=== PATIENT | female | born 1945 | race Caucasian/White ===

== ENCOUNTER 2018-11-09 16:59 | Emergency (ER) | payer MEDICARE ==
[~2018-11-09] VITALS: Ht 154.9 cm; Wt 63.5 kg
[2018-11-09 18:21] VITALS: BP 138/86
[2018-11-09] MEDS ORDERED: BACLOFEN 10 MG TAB PO ONE (19:00)
[2018-11-09] MEDS ORDERED: HYDROcodone-ACET 7.5/325MG TAB PO ONE (19:00)
== END 2018-11-09 19:30 | disposition home or self-care (01) ==
LOC: ER 16:59
DX: S29.011A Strain of muscle and tendon of front wall of thorax, initial encounter (principal); M62.838 Other muscle spasm; V43.52XA Car driver injured in collision with other type car in traffic accident, initial encounter; Y93.89 Activity, other specified; Y99.8 Other external cause status; Y92.410 Unspecified street and highway as the place of occurrence of the external cause
CPT/HCPCS: 71101

== ENCOUNTER 2020-11-26 09:51 | Emergency (ER) | payer BC ==
[~2020-11-26] VITALS: Ht 160 cm; Wt 65.8 kg
[2020-11-26 09:56] VITALS: BP 146/75
[2020-11-26] MEDS ORDERED: ACETAMINOPHEN 500 MG TAB PO ONE (11:00)
== END 2020-11-26 14:52 | disposition home or self-care (01) ==
LOC: EDBD 09:51 → ER 09:51
DX: S83.91XA Sprain of unspecified site of right knee, initial encounter (principal); M17.11 Unilateral primary osteoarthritis, right knee; M25.461 Effusion, right knee; F03.90 Unspecified dementia, unspecified severity, without behavioral disturbance, psychotic disturbance, mood disturbance, and anxiety; W01.0XXA Fall on same level from slipping, tripping and stumbling without subsequent striking against object, initial encounter; Y93.89 Activity, other specified; Y92.89 Other specified places as the place of occurrence of the external cause; Y99.8 Other external cause status
CPT/HCPCS: 73560

== ENCOUNTER 2021-05-29 10:25 | Inpatient (IN) | payer BC ==
[~2021-05-29] VITALS: Ht 172.7 cm; Wt 65.0 kg
[2021-05-29] MEDS ORDERED: LIDOCAINE 1% (LOCAL ANESTH.) PF 5ml SDV ID ONE (10:45)
[2021-05-29 11:10] LABS: Basophils # (auto) 0 10 ^3/uL (0-0.2); Basophils % (auto) 0.1 % (0.0-2.0); Eosinophils # (auto) 0 10 ^3/uL (0-0.8); Lymphocytes # (auto) 0.9 10 ^3/uL (0.4-5.4); Lymphocytes % (auto) 3.3 % (10.0-50.0); Mean Corpuscular Hgb Conc. 35.2 g/dL (32.0-36.0); Monocytes # (auto) 1.8 10 ^3/uL (0-1.3); Monocytes % (auto) 6.8 % (0.0-12.0); Neutrophils # (auto) 24.2 10 ^3/uL (1.6-8.6); Neutrophils % (auto) 89.8 % (37.0-80.0); Red Cell Distribution Width 13.8 % (11.8-14.3); White Blood Cell 26.9 10^3/uL (4.4-10.8)
[2021-05-29 11:26] LABS: Anion Gap 8 (5-15); Blood Urea Nitrogen 16 mg/dL (7-18); Calcium 8.8 mg/dL (8.5-10.1); Carbon Dioxide 25 mmol/L (21-32); Chloride 101 mmol/L (98-107); Glucose 116 mg/dL (74-106); Potassium 3.3 mmol/L (3.5-5.1); Sodium 134 mmol/L (136-145)
[2021-05-29 11:37] LABS: Alanine Aminotransferase 20 U/L (13-56); Alkaline Phosphatase 110 U/L (45-117); Aspartate Aminotransferase 14 U/L (15-37); BUN/Creatinine Ratio 19.5; Bilirubin, Total 0.6 mg/dL (0.2-1.0); GFR African American 88 mL/min; GFR Non-African American 72 mL/min; Total Protein 8.1 g/dL (6.4-8.2)
[2021-05-29] MEDS ORDERED: POTASSIUM CHL 20MEQ/100ML 100 ML IV ONE (14:15)
[2021-05-29 17:02] LABS: Urine Bacteria MANY /hpf (None Seen); Urine Blood 1+ /uL (Negative); Urine Hyaline Cast FEW /lpf (0 - 2); Urine Mucus FEW (None Seen); Urine WBC 236 /hpf (0 - 5); Urine WBC Clumps PRESENT /hpf (None Seen)
[2021-05-29] MEDS ORDERED: DOCUSATE SOD 100 MG CAP PO PRN (18:30)
[2021-05-29] MEDS ORDERED: cefTRIAXone 1GM/50ML D5W 50 ML IV ONE (18:30)
[2021-05-29] MEDS ORDERED: ACETAMINOPHEN 325 MG TAB PO PRN (18:30)
[2021-05-29] MEDS ORDERED: NITROGLYCERIN 0.4 MG SL TAB SL PRN (18:30)
[2021-05-29] MEDS ORDERED: ONDANSETRON HCL 4 MG/2 ML VIAL IV PRN (18:30)
[2021-05-29] MEDS ORDERED: QUET50TA25 PO (21:12)
[2021-05-29] MEDS ORDERED: OMEP-434 PO (21:12)
[2021-05-29] MEDS ORDERED: DONE5TAB80 PO (21:12)
[2021-05-29] MEDS ORDERED: SIMV-8 PO (21:12)
[2021-05-29 22:00] VITALS: BP 150/90
[2021-05-29] MEDS: SODIUM CHLOR 0.9% PF (SALINE LOCK) 10ML VIAL/SYR IV SCH (22:00)
[2021-05-29] MEDS: FAMOTIDINE 20 MG TAB PO SCH (22:00)
[2021-05-29] MEDS: ATORVASTATIN 20 MG TAB PO SCH (22:51)
[2021-05-29] MEDS: DONEPEZIL HYDROCHLORIDE 5 MG TAB PO SCH (22:51)
[2021-05-29] MEDS: ASCORBIC ACID 500 MG TAB PO SCH (22:52)
[2021-05-29] MEDS: HYDROcodone-ACET 5/325MG TAB PO PRN (22:52)
[2021-05-29 23:08] VITALS: BP 150/90
[2021-05-30 05:00] VITALS: BP 123/72
[2021-05-30] MEDS: SODIUM CHLOR 0.9% PF (SALINE LOCK) 10ML VIAL/SYR IV SCH (06:55)
[2021-05-30 06:56] LABS: Eosinophils # (auto) 0 10 ^3/uL (0-0.8); Lymphocytes # (auto) 1.1 10 ^3/uL (0.4-5.4); Mean Corpuscular Hemoglobin 30.6 pg (28.0-32.0); Monocytes # (auto) 1.8 10 ^3/uL (0-1.3)
[2021-05-30 06:58] LABS: Basophils # (auto) 0.1 10 ^3/uL (0-0.2); Basophils % (auto) 0.3 % (0.0-2.0); Eosinophils % (auto) 0.1 % (0.0-7.0); Hematocrit 36.4 % (36.0-46.0); Hemoglobin 12.5 g/dL (12.2-16.2); Mean Corpuscular Hgb Conc. 34.5 g/dL (32.0-36.0); Mean Corpuscular Volume 88.7 fL (80.0-100.0); Monocytes % (auto) 8.4 % (0.0-12.0); Neutrophils % (auto) 86.2 % (37.0-80.0); Red Cell Distribution Width 13.3 % (11.8-14.3)
[2021-05-30 07:12] LABS: Potassium 3.5 mmol/L (3.5-5.1)
[2021-05-30 07:22] LABS: Albumin 2.6 g/dL (3.4-5.0); BUN/Creatinine Ratio 24.4; Bilirubin, Total 0.4 mg/dL (0.2-1.0); Calcium 8.7 mg/dL (8.5-10.1); Total Protein 7.6 g/dL (6.4-8.2)
[2021-05-30] MEDS: cefTRIAXone 1GM/50ML D5W 50 ML IV SCH (08:58)
[2021-05-30] MEDS: HYDROcodone-ACET 5/325MG TAB PO PRN ×2 (08:58→22:15)
[2021-05-30 09:00] VITALS: BP 140/78
[2021-05-30] MEDS: MULTIPLE VITAMIN TAB PO SCH (09:38)
[2021-05-30] MEDS: PANTOPRAZOLE 40 MG TAB PO SCH (09:38)
[2021-05-30] MEDS: ENOXAPARIN SOD 30 MG/0.3 ML SYRINGE SC SCH (09:38)
[2021-05-30] MEDS: FAMOTIDINE 20 MG TAB PO SCH (09:38)
[2021-05-30] MEDS: ASCORBIC ACID 500 MG TAB PO SCH (09:38)
[2021-05-30] MEDS ORDERED: ZINC SULFATE 220mg CAP or TAB PO SCH (10:00)
[2021-05-30] MEDS: QUEtiapine FUMARATE 25 MG TAB PO SCH ×2 (12:07→22:14)
[2021-05-30 13:00] VITALS: BP 131/69
[2021-05-30 16:24] VITALS: BP 107/74
[2021-05-30 22:00] VITALS: BP 112/54
[2021-05-30] MEDS: DONEPEZIL HYDROCHLORIDE 5 MG TAB PO SCH (22:14)
[2021-05-30] MEDS: ATORVASTATIN 20 MG TAB PO SCH (22:14)
[2021-05-31 05:00] VITALS: BP 122/72
[2021-05-31 07:10] LABS: Basophils # (auto) 0.1 10 ^3/uL (0-0.2); Basophils % (auto) 0.3 % (0.0-2.0); Eosinophils # (auto) 0 10 ^3/uL (0-0.8); Eosinophils % (auto) 0.1 % (0.0-7.0); Hematocrit 34.4 % (36.0-46.0); Hemoglobin 11.9 g/dL (12.2-16.2); Lymphocytes # (auto) 1.3 10 ^3/uL (0.4-5.4); Lymphocytes % (auto) 8.3 % (10.0-50.0); Mean Corpuscular Hgb Conc. 34.6 g/dL (32.0-36.0); Mean Corpuscular Volume 89.7 fL (80.0-100.0); Monocytes # (auto) 1.5 10 ^3/uL (0-1.3); Monocytes % (auto) 10.1 % (0.0-12.0); Neutrophils # (auto) 12.3 10 ^3/uL (1.6-8.6); Neutrophils % (auto) 81.2 % (37.0-80.0); Red Blood Cells 3.84 10^6/uL (4.0-5.20); Red Cell Distribution Width 13.6 % (11.8-14.3); White Blood Cell 15.2 10^3/uL (4.4-10.8)
[2021-05-31 07:17] LABS: Calcium 8.8 mg/dL (8.5-10.1); Potassium 3.6 mmol/L (3.5-5.1)
[2021-05-31 07:19] LABS: BUN/Creatinine Ratio 30.3
[2021-05-31] MEDS: cefTRIAXone 1GM/50ML D5W 50 ML IV SCH (08:41)
[2021-05-31 08:49] VITALS: BP 133/78
[2021-05-31] MEDS: PANTOPRAZOLE 40 MG TAB PO SCH (09:36)
[2021-05-31] MEDS: MULTIPLE VITAMIN TAB PO SCH (09:36)
[2021-05-31] MEDS: ENOXAPARIN SOD 30 MG/0.3 ML SYRINGE SC SCH (09:36)
[2021-05-31] MEDS: QUEtiapine FUMARATE 25 MG TAB PO SCH ×2 (09:36→22:10)
[2021-05-31] MEDS ORDERED: LEVO500T31 PO (12:29)
[2021-05-31 13:00] VITALS: BP 100/63
[2021-05-31 17:00] VITALS: BP 127/55
[2021-05-31] MEDS: ATORVASTATIN 20 MG TAB PO SCH (22:10)
[2021-05-31] MEDS: DONEPEZIL HYDROCHLORIDE 5 MG TAB PO SCH (22:10)
[2021-05-31] MEDS: HYDROcodone-ACET 5/325MG TAB PO PRN (23:03)
[2021-06-01 05:29] LABS: Basophils # (auto) 0.1 10 ^3/uL (0-0.2); Basophils % (auto) 0.4 % (0.0-2.0); Eosinophils # (auto) 0 10 ^3/uL (0-0.8); Eosinophils % (auto) 0.1 % (0.0-7.0); Hematocrit 34.7 % (36.0-46.0); Hemoglobin 12.3 g/dL (12.2-16.2); Lymphocytes # (auto) 1.9 10 ^3/uL (0.4-5.4); Lymphocytes % (auto) 9.3 % (10.0-50.0); Mean Corpuscular Hemoglobin 31.6 pg (28.0-32.0); Mean Corpuscular Hgb Conc. 35.4 g/dL (32.0-36.0); Mean Corpuscular Volume 89.2 fL (80.0-100.0); Monocytes # (auto) 1.8 10 ^3/uL (0-1.3); Monocytes % (auto) 8.6 % (0.0-12.0); Neutrophils # (auto) 16.7 10 ^3/uL (1.6-8.6); Neutrophils % (auto) 81.6 % (37.0-80.0); Red Cell Distribution Width 13.2 % (11.8-14.3); White Blood Cell 20.5 10^3/uL (4.4-10.8)
[2021-06-01 05:44] LABS: Potassium 3.6 mmol/L (3.5-5.1)
[2021-06-01 05:54] LABS: Calcium 8.9 mg/dL (8.5-10.1)
[2021-06-01 09:00] VITALS: BP 134/77
[2021-06-01] MEDS: QUEtiapine FUMARATE 25 MG TAB PO SCH ×2 (10:29→21:56)
[2021-06-01] MEDS: PANTOPRAZOLE 40 MG TAB PO SCH (10:29)
[2021-06-01] MEDS: cefTRIAXone 1GM/50ML D5W 50 ML IV SCH (10:29)
[2021-06-01] MEDS: MULTIPLE VITAMIN TAB PO SCH (10:29)
[2021-06-01] MEDS: HYDROcodone-ACET 5/325MG TAB PO PRN ×2 (10:29→22:02)
[2021-06-01] MEDS: ENOXAPARIN SOD 30 MG/0.3 ML SYRINGE SC SCH (10:30)
[2021-06-01 13:00] VITALS: BP 101/67
[2021-06-01] MEDS: CLINDAMYCIN 600MG IV 50 ML IV SCH ×2 (14:36→21:53)
[2021-06-01 15:14] LABS: Urine Bacteria NONE SEEN /hpf (None Seen); Urine Blood 1+ /uL (Negative); Urine Mucus FEW (None Seen); Urine Specific Gravity 1.033 (1.001-1.035); Urine WBC 3 /hpf (0 - 5)
[2021-06-01] MEDS: levoFLOXacin 500MG 100 ML IV SCH (15:53)
[2021-06-01 16:30] VITALS: BP 116/71
[2021-06-01] MEDS: DONEPEZIL HYDROCHLORIDE 5 MG TAB PO SCH (21:55)
[2021-06-01] MEDS: ATORVASTATIN 20 MG TAB PO SCH (21:56)
[2021-06-01 22:00] VITALS: BP_SYST 134; BP_SYST 153; BP_DIAS 73; BP_DIAS 77
[2021-06-02 05:00] VITALS: BP_SYST 123; BP_SYST 124; BP_DIAS 70; BP_DIAS 73
[2021-06-02 05:23] LABS: Basophils # (auto) 0.1 10 ^3/uL (0-0.2); Basophils % (auto) 0.4 % (0.0-2.0); Eosinophils # (auto) 0.2 10 ^3/uL (0-0.8); Hematocrit 35.8 % (36.0-46.0); Hemoglobin 12.2 g/dL (12.2-16.2); Lymphocytes # (auto) 1.6 10 ^3/uL (0.4-5.4); Lymphocytes % (auto) 10.5 % (10.0-50.0); Mean Corpuscular Hemoglobin 30.4 pg (28.0-32.0); Mean Corpuscular Hgb Conc. 33.9 g/dL (32.0-36.0); Mean Corpuscular Volume 89.7 fL (80.0-100.0); Monocytes # (auto) 1.4 10 ^3/uL (0-1.3); Monocytes % (auto) 9.2 % (0.0-12.0); Neutrophils # (auto) 12.3 10 ^3/uL (1.6-8.6); Neutrophils % (auto) 78.9 % (37.0-80.0); Nucleated Red Blood Cells % 0.1 %; Red Blood Cells 3.99 10^6/uL (4.0-5.20); Red Cell Distribution Width 13.8 % (11.8-14.3); White Blood Cell 15.5 10^3/uL (4.4-10.8)
[2021-06-02 05:49] LABS: BUN/Creatinine Ratio 31.7; Calcium 8.8 mg/dL (8.5-10.1)
[2021-06-02] MEDS: CLINDAMYCIN 600MG IV 50 ML IV SCH ×3 (05:59→21:29)
[2021-06-02 09:00] VITALS: BP 122/76
[2021-06-02] MEDS: levoFLOXacin 500MG 100 ML IV SCH (10:02)
[2021-06-02] MEDS: MULTIPLE VITAMIN TAB PO SCH (10:02)
[2021-06-02] MEDS: QUEtiapine FUMARATE 25 MG TAB PO SCH ×2 (10:02→21:29)
[2021-06-02] MEDS: PANTOPRAZOLE 40 MG TAB PO SCH (10:02)
[2021-06-02] MEDS: ENOXAPARIN SOD 30 MG/0.3 ML SYRINGE SC SCH (10:03)
[2021-06-02 13:00] VITALS: BP 112/64
[2021-06-02 17:00] VITALS: BP 155/82
[2021-06-02] MEDS ORDERED: LEVO500T31 PO (18:33)
[2021-06-02] MEDS ORDERED: CLIN300C8 PO (18:33)
[2021-06-02] MEDS: ATORVASTATIN 20 MG TAB PO SCH (21:29)
[2021-06-02] MEDS: DONEPEZIL HYDROCHLORIDE 5 MG TAB PO SCH (21:29)
[2021-06-02 22:00] VITALS: BP 153/77
[2021-06-03 05:00] VITALS: BP 124/70
[2021-06-03] MEDS: CLINDAMYCIN 600MG IV 50 ML IV SCH ×2 (05:43→14:15)
[2021-06-03] MEDS: HYDROcodone-ACET 5/325MG TAB PO PRN (05:43)
[2021-06-03 08:00] VITALS: BP 155/79
[2021-06-03] MEDS: levoFLOXacin 500MG 100 ML IV SCH (09:38)
[2021-06-03] MEDS: PANTOPRAZOLE 40 MG TAB PO SCH (09:38)
[2021-06-03] MEDS: MULTIPLE VITAMIN TAB PO SCH (09:38)
[2021-06-03] MEDS: ENOXAPARIN SOD 30 MG/0.3 ML SYRINGE SC SCH (09:39)
[2021-06-03] MEDS: QUEtiapine FUMARATE 25 MG TAB PO SCH (09:48)
[2021-06-03 12:00] VITALS: BP 115/71
[2021-06-03 16:00] VITALS: BP 129/66
[2021-06-03 17:34] VITALS: BP 129/66
== END 2021-06-03 19:58 | disposition home health service (06) | DRG 872 ==
LOC: EDBD 10:25 → ER 10:25 → OVERFLOW 18:31 → WEST WING 20:37
PROVIDERS: ADMIT Internal Medicine; ATTEND Internal Medicine
PROC: 0S9D3ZZ Drainage of Left Knee Joint, Percutaneous Approach (ICD-10-PCS; principal; 2021-05-29)
DX: A41.9 Sepsis, unspecified organism (principal); N39.0 Urinary tract infection, site not specified; E87.1 Hypo-osmolality and hyponatremia; J98.11 Atelectasis; M25.461 Effusion, right knee; Z20.822 Contact with and (suspected) exposure to COVID-19; E87.6 Hypokalemia; F02.80 Dementia in other diseases classified elsewhere, unspecified severity, without behavioral disturbance, psychotic disturbance, mood disturbance, and anxiety; E78.5 Hyperlipidemia, unspecified; G30.9 Alzheimer's disease, unspecified; M19.90 Unspecified osteoarthritis, unspecified site; K21.9 Gastro-esophageal reflux disease without esophagitis; B96.20 Unspecified Escherichia coli [E. coli] as the cause of diseases classified elsewhere; F17.210 Nicotine dependence, cigarettes, uncomplicated; M85.80 Other specified disorders of bone density and structure, unspecified site; N18.9 Chronic kidney disease, unspecified; F32.9 Major depressive disorder, single episode, unspecified; Z79.899 Other long term (current) drug therapy
CPT/HCPCS: 36415; 70450; 71045; 73562; 80048; 80053; 81001; 84484; 85025; 85049; 87040; 87086; 87088; 87186; 87426; 93005; 96365; 96366; 97163; G0378; J0696; J1956; J3480; J3490